=== PATIENT | male | born 1960 | race Caucasian/White ===

== ENCOUNTER 2018-11-13 10:34 | Emergency (ER) | payer OTHER ==
[~2018-11-13] VITALS: Ht 170.2 cm; Wt 65.0 kg
[2018-11-13 10:39] VITALS: Ht 170.2 cm; Wt 65.0 kg
[2018-11-13] MEDS ORDERED: OLANZAPINE 10 MG VIAL IM ONE (12:00)
--- NOTE | 2018-11-13 14:06 | ERD ---
ER Documentation Chief Complaint Chief Complaint [facility]IB [facility] WAS CALLED BY BYSTANDER. PT IN RAIN W/WET CLOTHES. TRANSIENT HPI 58-year-old male presents to the emergency department by paramedics after being found cold outside. Patient is unable to provide any significant history at this time. Patient seems disorganized and unable to care for himself I have reviewed the forming operator pre-hospital care. Pre-hospital vital signs were reviewed. Pre-hospital diagnostic tests were reviewed. ROS All systems reviewed and are negative except as per history of present illness. Medications Home Meds No Active Prescriptions or Reported Meds Allergies Allergies: Coded Allergies: No Known Allergy (Unverified , 11/13/18) PMhx/Soc Medical and Surgical Hx: pt denies Medical Hx, pt denies Surgical Hx Hx Alcohol Use: No Hx Substance Use: No Hx Tobacco Use: No Smoking Status: Never smoker Physical Exam Vitals Vital Signs Date Temp Pulse Resp B/P (MAP) Pulse Ox O2 O2 Flow FiO2 Time Delivery Rate 11/13/18 81 16 163/94 99 Room Air 11:43 (117) 11/13/18 98.0 65 19 193/104 97 10:39 (133) Physical Exam GENERAL: Poor hygiene. Patient is shivering with cold close HEENT: Pupils equal, round, and reactive to light. EOMI. There is no scleral icterus. NECK: C-spine is soft and supple, there is no meningismus. There is no cervical lymphadenopathy. LUNGS: Clear to auscultation bilaterally. There are no rales, wheezes or rhonchi. HEART: Regular rate and rhythm, no murmurs, clicks, rubs or gallops. ABDOMEN: Soft, non-tender, non-distended. There are bowel sounds in all four quadrants. No rebound or guarding. EXTREMITIES: There is no peripheral cyanosis or edema. No focal swelling or erythema. NEURO: The patient moves all four extremities with 5/5 strength. Cranial nerves II - XII are intact. Normal gait. SKIN: There is no apparent rash or petechiae. HEME/LYMPHATIC: There is no evidence of excessive bruising or lymphedema. PSYCHIATRIC: The patient is awake but somewhat agitated. He has a nonlinear, confused and disorganized thought process. He appears to be responding to inappropriate internal stimuli. Result Diagram: 11/13/18 1253 11/13/18 1253 Results 24 hrs Laboratory Tests Test 11/13/18 12:53 White Blood Count 6.8 10^3/ul Red Blood Count 5.75 10^6/ul Hemoglobin 16.7 g/dl Hematocrit 49.3 % Mean Corpuscular Volume 85.7 fl Mean Corpuscular Hemoglobin 29.0 pg Mean Corpuscular Hemoglobin Concent 33.9 g/dl Red Cell Distribution Width 13.3 % Platelet Count 147 10^3/UL Mean Platelet Volume 10.0 fl Immature Granulocytes % 0.300 % Neutrophils % 55.7 % Lymphocytes % 26.9 % Monocytes % 16.1 % Eosinophils % 0.6 % Basophils % 0.4 % Nucleated Red Blood Cells % 0.0 /100WBC Immature Granulocytes # 0.020 10^3/ul Neutrophils # 3.8 10^3/ul Lymphocytes # 1.8 10^3/ul Monocytes # 1.1 10^3/ul Eosinophils # 0.0 10^3/ul Basophils # 0.0 10^3/ul Nucleated Red Blood Cells # 0.0 10^3/ul Sodium Level 138 mmol/L Potassium Level 3.8 mmol/L Chloride Level 102 mmol/L Carbon Dioxide Level 22 mmol/L Anion Gap 14 Blood Urea Nitrogen 19 mg/dl Creatinine 0.72 mg/dl Est Glomerular Filtrat Rate mL/min > 60 mL/min Glucose Level 122 mg/dl Calcium Level 10.0 mg/dl Total Bilirubin 0.3 mg/dl Direct Bilirubin 0.00 mg/dl Indirect Bilirubin 0.3 mg/dl Aspartate Amino Transf (AST/SGOT) 40 IU/L Alanine Aminotransferase (ALT/SGPT) 15 IU/L Alkaline Phosphatase 67 IU/L Total Protein 9.0 g/dl Albumin 4.7 g/dl Globulin 4.30 g/dl Albumin/Globulin Ratio 1.09 Salicylates Level < 1.0 mg/dl Acetaminophen Level < 10.0 ug/ml Ethyl Alcohol Level < 10.0 mg/dl Current Medications Medications Dose Sig/[place] Start Time Status Last (Trade) Ordered Route PRN Stop Time Admin Dose Reason Admin Olanzapine 10 mg ONCE ONCE 11/13/18 DC 11/13/18 (Zyprexa) IM 12:00 11/13/18 12:22 12:01 Procedures/MDM Patient was taken to a room, seen and evaluated. Comfort measures were initiated. Diagnostic tests were ordered and reviewed. RADIOLOGY: CT of the brain pending CONSULTATION: Tele-psych consultation has been requested and is pending REEVALUATION: 1400: Initial diagnostic lab tests were reviewed with no indications of decompensated medical disease. MEDICAL DECISION MAKIN-year-old male presents disorganized with what ap pears to be psychotic behavior leading to him being gravely disabled and a danger to himself as he is clearly unable to care for himself and presents soaking wet having been out in the rain. Patient will require psychiatric evaluation, but I suggest that he is an appropriate for discharge at this time until stabilized as he likely appears gravely disabled and a danger to himself at this time. From a medical standpoint, I see no significant decompensated emergent medical condition pending results of the CT scan. Departure Diagnosis: Primary Impression: Psychosis Condition: NIMISHA Jha Nov 13, 2018 14:06
[2018-11-13] MEDS ORDERED: LORAZEPAM 2 MG INJ IV ONE (14:30)
[2018-11-13] MEDS ORDERED: LORAZEPAM 2 MG INJ IM ONE (15:00)
[2018-11-13] MEDS ORDERED: HALOPERIDOL 5 MG INJ IM ONE (16:00)
--- NOTE | 2018-11-13 18:21 | EN ---
Date/Time of Note Date/Time of Note DATE: 11/13/18 TIME: 18:[address] Arriaga left and had me follow-up at this patient CT scan: Patient: GRETTA PADRON : 1960 Age: 58 Sex: M MR #: [id number] DOS: 11/13/18 1142 Ordering MD: NIMISHA ARRIAGA MD Location: E/R Room/Bed: PROCEDURE: CT Brain without contrast. CLINICAL INDICATION: Medical clearance. TECHNIQUE: A CT of the brain was performed on a [employer] 64-slice CT scanner utilizing axial imaging from the skull base through the vertex without IV contrast. Multiplanar reformatted images were made. Images were reviewed on a PACS workstation. The CTDIvol is 39.64 mGy and the DLP is 634.23 mGycm. One or the following dose reduction techniques were used: -Automated exposure control. -Adjustment of the mA and/or KV according to patient's size. -Use of iterative reconstruction technique. DICOM images are available. COMPARISON: None FINDINGS: There is no intracranial hemorrhage, mass effect, or midline shift. No extra- axial fluid collection is seen. The ventricles and sulci are normal in size and configuration. The density of the brain is normal, and the nails white matter differentiation appears well-preserved. The visualized paranasal sinuses and osseous structures are grossly unremarkable. IMPRESSION: 1. No acute intracranial process identified. RPTAT: [facility] Physician Arnie Date Time Electronically viewed and signed by Physician Arnie on 11/13/2018 16:21 JH/ CC: NIMISHA ARRIAGA [id number] Scan shows no acute disease. The patient had to get Ativan and Haldol to keep him still for the scan. The plan was for patient to be evaluated by psychiatrist when the patient is awake. This will occur once the meds are worn off and he will be evaluated for transfer to a psych facility AUSTIN TAVARES DO Nov 13, 2018 18:21
--- NOTE | 2018-11-14 05:04 | PSY ---
Date/Time of Note Date/Time of Note DATE: 11/14/18 TIME: 05:03 Psychiatric Subjective Eval Consent Pt consented to telemedicine: Yes Subjective Evaluation Patient location: emergency Chief Complaint: [facility] WAS CALLED BY BYSTANDER. PT IN RAIN W/WET CLOTHES. TRANSIENT Medical history Problems Medical Problems: (1) Psychosis Status: Acute Allergies: Coded Allergies: No Known Allergy (Unverified , 11/13/18) Psychiatric Objective Eval Mental Status Examination: Laboratory Results Laboratory Tests Test 11/13/18 12:53 White Blood Count 6.8 10^3/ul Red Blood Count 5.75 10^6/ul Hemoglobin 16.7 g/dl Hematocrit 49.3 % Mean Corpuscular Volume 85.7 fl Mean Corpuscular Hemoglobin 29.0 pg Mean Corpuscular Hemoglobin Concent 33.9 g/dl Red Cell Distribution Width 13.3 % Platelet Count 147 10^3/UL Mean Platelet Volume 10.0 fl Immature Granulocytes % 0.300 % Neutrophils % 55.7 % Lymphocytes % 26.9 % Monocytes % 16.1 % Eosinophils % 0.6 % Basophils % 0.4 % Nucleated Red Blood Cells % 0.0 /100WBC Immature Granulocytes # 0.020 10^3/ul Neutrophils # 3.8 10^3/ul Lymphocytes # 1.8 10^3/ul Monocytes # 1.1 10^3/ul Eosinophils # 0.0 10^3/ul Basophils # 0.0 10^3/ul Nucleated Red Blood Cells # 0.0 10^3/ul Sodium Level 138 mmol/L Potassium Level 3.8 mmol/L Chloride Level 102 mmol/L Carbon Dioxide Level 22 mmol/L Anion Gap 14 Blood Urea Nitrogen 19 mg/dl Creatinine 0.72 mg/dl Est Glomerular Filtrat Rate mL/min > 60 mL/min Glucose Level 122 mg/dl Calcium Level 10.0 mg/dl Total Bilirubin 0.3 mg/dl Direct Bilirubin 0.00 mg/dl Indirect Bilirubin 0.3 mg/dl Aspartate Amino Transf (AST/SGOT) 40 IU/L Alanine Aminotransferase (ALT/SGPT) 15 IU/L Alkaline Phosphatase 67 IU/L Total Protein 9.0 g/dl Albumin 4.7 g/dl Globulin 4.30 g/dl Albumin/Globulin Ratio 1.09 Salicylates Level < 1.0 mg/dl Acetaminophen Level < 10.0 ug/ml Ethyl Alcohol Level < 10.0 mg/dl Assessment and Plan Recommendation/Plan Discharge Disposition: Psychiatric inpatient Legal Status: Place involuntary hold Assessment Additional comments: IDENTIFYING INFORMATION: 58 year old Male patient who is currently located at the hospital and for whom psychiatric consultation was requested. SOURCES OF INFORMATION: The patient who appears to be unreliable and the medical records; the nursing staff. CHIEF COMPLAINT: "I live in the hospital". HISTORY OF PRESENT ILLNESS: The patient was interviewed via telemedicine in the presence of and under the supervision of nursing staff of the hospital. The consent to conducting this interview via telemedicine was obtained by the nursing staff at the hospital. LUNA Hansen reports that the patient presented with psychosis, RTIS. Is not on a 5150 hold. The patient reports having been brought to the hospital by the ambulance. The patient denies having AH, VH, SI, HI. The patient denies using alcohol heavily or regularly. The patient denies using any other substances. In terms of past psychiatric history, the patient reports having a history of past psychiatric hospitalizations. The patient reports having a history of past suicide attempts. Past medication trials: unknown. PAST MEDICAL HISTORY: none. CURRENT MEDICATIONS: none. ALLERGIES TO MEDICATIONS: NKDA. LABORATORY TESTS: CBC wnl, CMP wnl UDS pending, alcohol level not detected. SOCIAL HISTORY: lives at the hospital, unable to assess further. REVIEW OF SYSTEMS: unable to assess due to the patient not being able to cooperate. MENTAL STATUS EXAMINATION: General Appearance and Behavior:restless, appears to be responding to internal stimuli, partially cooperative with most of the interview, distant with the current interviewer, makes poor eye contact, poorly groomed, increased psychomotor activity, no abnormal movements noted. Speech: Normal rate, regular rhythm, normal latency, normal volume, very difficult to understand, Flow of thought: tangential, illogical, not goal-directed. Content of thought: appears to be responding to internal stimuli but denies having auditory hallucinations, + paranoid delusions, no visual hallucinations, denies having suicidal homicidal ideation, Mood: "OK". Affect: restless, flat, decreased range of reactivity. Attention: normal based on the interview. Insight: poor. Judgment: poor. Memory: normal based on the interview. Sensorium: alert and oriented to person, date, place. ASSESSMENT: The patient's presentation and history are consistent with the diagnosis of unspecified psychotic disorder. The patient presents with an exacerbation of psychosis in the context of medication nonncompliance, psychosocial stressors. PLAN: - Medication management: Would start Zyprexa 5 mg by mouth twice a day. Would start haloperidol 5 mg IM PRN severe agitation q4 hours. Would start diphenhydramine 50 mg IM PRN severe agitation q4 hours. Would start lorazepam 2 mg IM PRN severe agitation q4 hours Will defer to the inpatient psychiatry team for other medication changes. - Labs: Please check UDS. - Psychotherapy: Provided supportive psychotherapy and psychoeducation. - Disposition: Would recommend involuntary admission to the inpatient psychiatric unit given the severity of the patient's psychiatric condition and the fact that the patient is an imminent danger to self and/or others so long as the patient has been cleared medically for admission to psychiatry. Inpatient psychiatric admission is at this time the least restrictive environment where the patient can receive the psychiatric care that is needed. Would place on suicide precautions. The patient fulfills criteria for being placed on an involuntary hold for being gravely disabled due to a psychiatric disorder. RALPH SAENZ MD Nov 14, 2018 05:04
--- NOTE | 2018-11-14 05:35 | EN ---
Date/Time of Note Date/Time of Note DATE: 11/14/18 TIME: 05:33 ER Progress Note Psychiatric Observation Note: Indication: Psychosis Duration: Greater than 4 hours Family history: As documented in original HPI The patient was observed with serial exams over the above timeframe. The patient continued to be well-appearing, and observation continued without complication. All other needs have been met during emergency department stay. Routine psychiatric medications ordered: Still pending psychiatric evaluation Hold status: Patient is still pending telemetry medicine psychiatry evaluation. He continued to be disorganized and agitated requiring sedation and only now is awake to have a conversation with the telemetry medicine psychiatrist. Placement status: Pending evaluation SHARONDA FERREIRA Nov 14, 2018 05:35
[2018-11-14] MEDS ORDERED: HALOPERIDOL 5 MG INJ IM ONE (15:00)
[2018-11-14] MEDS ORDERED: DIPHENHYDRAMINE 50 MG INJ IM ONE (15:00)
[2018-11-14] MEDS ORDERED: LORAZEPAM 2 MG INJ IM ONE (15:00)
[2018-11-15] MEDS ORDERED: OLANZAPINE 5 MG TAB PO SCH (09:00)
--- NOTE | 2018-11-15 15:30 | PSY ---
Date/Time of Note Date/Time of Note DATE: 11/15/18 TIME: 15:26 Psychiatric Subjective Eval Consent Pt consented to telemedicine: Yes Subjective Evaluation Patient location: emergency Chief Complaint: [facility] WAS CALLED BY BYSTANDER. PT IN RAIN W/WET CLOTHES. TRANSIENT Reason for consult: unable to care for self, psychotic History of present illness 58 yo homeless male with hx schizophrenia BIB EMS because he was standing in the rain outside. Pt was seen by telepsychiatry, inpt care was recommended. Pt is calm, cooperative, polite; his speech is difficult to understand. Pt says he would like to go to a alf; he deneis SI or HI; he denies AH or VH. Pt says he is fine to go to a alf. Poor historian overall. Oriented to place. Past psychiatric history multiple inpt Hospitalization: Suicidal Attempt(s) Medical history Problems Medical Problems: (1) Psychosis Status: Acute Allergies: Coded Allergies: No Known Allergy (Unverified , 11/13/18) Substance Abuse Substance use: No known substance abuse Social History Marital status: single DPA/Conservatorship: No Occupation/Group Home: on [facility]si Psychiatric Objective Eval Review of Systems: Review of Systems: Not Applicable Mental Status Examination: Appearance: Disheveled Eye Contact: Fair Psychomotor Activity: Normal Behavior: Cooperative Speech: Disorganized AFFECT: Appropriate Mood: Appropriate/Full Thought Content: Delusions Suicidal: No Homicidal: No On 72 hour hold: Yes Orientation: x2 Cognition: Alert Insight: Impared Judgement: Impared Laboratory Results Laboratory Tests Test 11/14/18 06:35 Urine Color YELLOW Urine Clarity CLEAR Urine pH 6.0 Urine Specific [place] 1.010 Urine Ketones TRACE mg/dL Urine Nitrite NEGATIVE mg/dL Urine Bilirubin NEGATIVE mg/dL Urine Urobilinogen NEGATIVE mg/dL Urine Leukocyte Esterase NEGATIVE Ibis/ul Urine Hemoglobin NEGATIVE mg/dL Urine Glucose 1+ mg/dL Urine Total Protein NEGATIVE mg/dl Urine Opiates Screen Negative Urine Barbiturates Negative Urine Amphetamines Screen Negative Urine Benzodiazepines Screen Negative Urine Cocaine Screen Negative Urine Cannabinoids Negative Assessment and Plan Assessment/Diagnosis Diagnosis SCHIZOPHRENIA Recommendation/Plan Medication Management ZYPREXA 5 MG POQHS Multiple antipsychotics: Yes Discharge Disposition: Community ([facility]) Legal Status: Release involuntary hold Other PT IS MOST LIKELY AT BASELINE; HE WOULD BENEFIT FROM [employer] CONSULTATION AND PLACEMENT OT A [facility] OR ROOM AND BOARD. ROJELIO HERNANDEZ MD Nov 15, 2018 15:29
[2018-11-15] MEDS ORDERED: OLAN5TAB68 PO (16:04)
[2018-11-15 16:36] VITALS: BP 136/87; PULSE 77; RESP 18
== END 2018-11-15 16:53 | disposition home or self-care (01) ==
LOC: E/R 10:34
DX: F29 Unspecified psychosis not due to a substance or known physiological condition (principal); R40.2142 Coma scale, eyes open, spontaneous, at arrival to emergency department; R40.2362 Coma scale, best motor response, obeys commands, at arrival to emergency department; R40.2252 Coma scale, best verbal response, oriented, at arrival to emergency department; R07.9 Chest pain, unspecified
CPT/HCPCS: 70450; 71045; 80053; 80307; 81003; 85025; 96372; J1200; J1630; J2060; Z7502; Z7610